=== PATIENT | female | born 1995 | race Caucasian/White ===

== ENCOUNTER 2022-08-22 11:05 | Emergency (ER) | payer SELFPAY ==
[2022-08-22 12:16] LABS: Absolute Lymphocytes (CBC) 1.7 K/uL (0.7-4.9); Hematocrit 41.9 % (36.0-45.0); Lymphocytes % 13.8 % (15.3-44.8); MCV 87.5 fL (80-100); MPV 9.3 fL (7.6-11.3); RBC Red Blood Cell Count 4.79 M/uL (3.86-4.86)
[2022-08-22 12:34] LABS: Albumin 3.8 g/dL (3.4-5.0); Bilirubin Total 0.3 mg/dL (0.2-1.0); Protein, Total 8.1 g/dL (6.4-8.2)
[2022-08-22 13:20] LABS: Urine Blood Negative (Negative); Urine Glucose Negative (Negative); Urine Protein Negative (Negative)
--- NOTE | 2022-08-22 13:38 | RAD REPORT ---
EXAM DESCRIPTION: CTAbdomen Pelvis W Contrast - 08/22/2022 1:27 pm CLINICAL HISTORY: Abdominal pain. asdf COMPARISON: Abdomen Pelvis W Contrast dated 12/25/2017 TECHNIQUE: Biphasic CT imaging of the abdomen and pelvis was performed with 100 ml non-ionic IV cont rast. All CT scans are performed using dose optimization technique as appropriate and may include automated exposure control or mA/KV adjustment according to patient size. FINDINGS: The lung bases are clear. The liver demonstrates diffuse fatty infiltration. Spleen, pancreas, adrenal glands and kidneys are w ithin normal limits. No bowel obstruction, free air, free fluid or abscess. The appendix is normal. No evidence of signi ficant lymphadenopathy. No suspicious bony findings. IUD is present in the uterus. IMPRESSION: No acute intra-abdominal or pelvic finding. Fatty liver.
--- NOTE | 2022-08-22 13:57 | EDPHYS ---
Physician Documentation [facility] Name: Kiki Gonzalez Age: 27 yrs Sex: Female : 1995 Arrival Date: 08/22/2022 Time: 11:09 Bed Treatment Private MD: ED Physician Tee Lazar HPI: 08/22 11:57 This 27 yrs old Female presents to ER via Unassigned with complaints of jl9 Abdominal Pain, Back Pain x 1 week. Patient also c/o left ear pain. . 11:57 The patient presents with abdominal pain that is diffuse. Onset: The symptoms/episode jl9 began/occurred 1 week(s) ago. The symptoms radiate to both flanks. Associated signs and symptoms: Pertinent positives:. The symptoms are described as crampy. Modifying factors: The symptoms are alleviated by nothing, the symptoms are aggravated by nothing. Severity of pain: in the emergency department the pain is a 3 / 10. Historical: - Allergies: 12:09 PENICILLINS; iw 12:09 Codeine; iw - PMHx: 12:09 Heart Murmur; Mitral Valve Regurgitation; Asthma; iw - PSHx: 12:09 None; iw ROS: 11:56 Constitutional: Negative for fever, chills, and weight loss, Eyes: Negative for injury, jl9 pain, redness, and discharge, ENT: Negative for injury, pain, and discharge, Neck: Negative for injury, pain, and swelling, Cardiovascular: Negative for chest pain, palpitations, and edema, Respiratory: Negative for shortness of breath, cough, wheezing, and pleuritic chest pain. 11:56 : Negative for injury, bleeding, discharge, and swelling, MS/Extremity: Negative for injury and deformity, Skin: Negative for injury, rash, and discoloration, Neuro: Negative for headache, weakness, numbness, tingling, and seizure, Psych: Negative for depression, anxiety, suicide ideation, homicidal ideation, and hallucinations, Allergy/Immunology: Negative for hives, rash, and allergies, Endocrine: Negative for neck swelling, polydipsia, polyuria, polyphagia, and marked weight changes. 11:56 Abdomen/GI: Positive for abdominal pain, abdominal cramps. 11:56 Back: Positive for flank pain, bilaterally. Exam: 11:56 Constitutional: This is a well developed, well nourished patient who is awake, alert, jl9 and in no acute distress. Head/Face: Normocephalic, atraumatic. Eyes: Pupils equal round and reactive to light, extra-ocular motions intact. Lids and lashes normal. Conjunctiva and sclera are non-icteric and not injected. Cornea within normal limits. Periorbital areas with no swelling, redness, or edema. ENT: Mucous membranes moist. Neck: Trachea midline, no thyromegaly or masses palpated, and no cervical lymphadenopathy. Supple, full range of motion without nuchal rigidity, or vertebral point tenderness. No Meningismus. Chest/axilla: Normal chest wall appearance and motion. Nontender with no deformity. No lesions are appreciated. Cardiovascular: Regular rate and rhythm with a normal S1 and S2. No gallops, murmurs, or rubs. Normal PMI, no JVD. No pulse deficits. Respiratory: Lungs have equal breath sounds bilaterally, clear to auscultation and percussion. No rales, rhonchi or wheezes noted. No increased work of breathing, no retractions or nasal flaring. 11:56 Skin: Warm, dry with normal turgor. Normal color with no rashes, no lesions, and no evidence of cellulitis. MS/ Extremity: Pulses equal, no cyanosis. Neurovascular intact. Full, normal range of motion. Neuro: Awake and alert, GCS 15, oriented to person, place, time, and situation. Cranial nerves II-XII grossly intact. Motor strength 5/5 in all extremities. Sensory grossly intact. Cerebellar exam normal. Normal gait. Psych: Awake, alert, with orientation to person, place and time. Behavior, mood, and affect are within normal limits. 11:56 Abdomen/GI: Inspection: abdomen appears normal, Bowel sounds: normal, Palpation: mild abdominal tenderness. 11:56 Back: pain, that is mild, of the left low back and right low back. MDM: 11:38 Patient medically screened. jl9 11:57 Data reviewed: vital signs, nurses notes. jl9 13:55 Counseling: I had a detailed discussion with the patient and/or guardian regarding: the jl9 historical points, exam findings, and any diagnostic results supporting the discharge/admit diagnosis, lab results, radiology results, the need for outpatient follow up, to return to the emergency department if symptoms worsen or persist or if there are any questions or concerns that arise at home. 08/22 11:35 Order name: CBC with Diff; Complete Time: 12:49 [facility] 08/22 11:35 Order name: CMP; Complete Time: 12:49 [facility] 08/22 11:26 Order name: Urine Dipstick-Ancillary (obtain specimen); Complete Time: 13:20 [facility] 08/22 11:35 Order name: Lipase; Complete Time: 12:49 [facility] 08/22 11:35 Order name: CT Abd/Pelvis - IV Contrast Only; Complete Time: 13:45 [facility] 08/22 13:21 Order name: Urine Dipstick-Ancillary; Complete Time: 13:29 [facility] 08/22 11:26 Order name: Urine Test (obtain specimen); Complete Time: 13:20 [facility] 08/22 11:35 Order name: IV Saline Lock; Complete Time: 12:08 [facility] 08/22 11:35 Order name: Labs collected and sent; Complete Time: 12:08 [facility] Administered Medications: No medications were administered Disposition: 16:33 Co-signature as Attending Physician, Tee Lazar MD. rn Disposition Summary: 08/22/22 13:56 Discharge Ordered Location: Home jl9 Condition: Stable jl9 Diagnosis - Abdominal pain, unspecified jl9 - Acute serous otitis media, left ear jl9 Followup: jl9 - With: Private Physician - When: 1 - 2 days - Reason: Recheck today's complaints, Continuance of care, Re-evaluation by your physician Discharge Instructions: - Discharge Summary Sheet jl9 - Otitis Media, Adult jl9 - Abdominal Pain, Adult, [id number] jl9 Forms: - Medication Reconciliation Form jl9 - Thank You Letter jl9 - Antibiotic Education jl9 - Prescription Opioid Use jl9 Prescriptions: - azithromycin 250 mg Oral tablet - take 2 tablet by ORAL route once daily for 1 day then 1 tablet (250 mg) by oral jl9 route once daily for 4 days; 6 tablet; Refills: 0, Product Selection Permitted Signatures: Dispatcher [employer] Federica Arellano RN RN iw Nieto, Roman, MD MD rn Linares, John jl9 Corrections: (The following items were deleted from the chart) 13:55 11:57 This 27 yrs old Female presents to ER via Unassigned with complaints of jl9 Abdominal Pain, Back Pain x 1 week. . jl9
--- NOTE | 2022-08-22 13:57 | ER ---
Nurse's Notes [facility] Name: Kiki Gonzalez Age: 27 yrs Sex: Female : 1995 Arrival Date: 08/22/2022 Time: 11:09 Bed Treatment Private MD: Diagnosis: Abdominal pain, unspecified;Acute serous otitis media, left ear Presentation: 08/22 12:06 Chief complaint: Patient states: nausea X 2 weeks, lower and upper abd pain , la flank iw pain , also thinks her IUD needs to be checked, pain started in her pelvic area initially. Coronavirus screen: At this time, the client does not indicate any symptoms associated with coronavirus-19. Ebola Screen: Patient negative for fever greater than or equal to 101.5 degrees Fahrenheit, and additional compatible Ebola Virus Disease symptoms Patient denies exposure to infectious person. Patient denies travel to an Ebola-affected area in the 21 days before illness onset. No symptoms or risks identified at this time. Risk Assessment: Do you want to hurt yourself or someone else? Patient reports no desire to harm self or others. Onset of symptoms was August 09, 2022. 12:06 Method Of Arrival: Ambulatory iw 12:06 Acuity: BAR 3 iw Historical: - Allergies: 12:09 PENICILLINS; iw 12:09 Codeine; iw - PMHx: 12:09 Heart Murmur; Mitral Valve Regurgitation; Asthma; iw - PSHx: 12:09 None; iw ED Course: 11:09 Patient arrived in ED. mr 11:25 Dimitrios Ramirez is PHCP. jl9 11:25 Tee Lazar MD is Attending Physician. jl9 12:00 Missed attempt(s): 22 gauge in left antecubital area. Bleeding controlled, band aid dh3 applied, catheter tip intact. 12:04 Initial lab(s) drawn, by ak, sent to lab. Inserted saline lock: 20 gauge in right dh3 antecubital area, using aseptic technique. Blood collected. 12:06 Federica Toussaint, RN is Primary Nurse. iw 12:09 Triage completed. iw 13:29 CT Abd/Pelvis - IV Contrast Only In Process Unspecified. EDMS Administered Medications: No medications were administered Outcome: 13:56 Discharge ordered by . jl9 14:54 Patient left the ED. 3 Signatures: Dispatcher [employer] Tania Davis Irene, Marcelina Jacob RN 3 Dimitrios Ramirez 9
== END 2022-08-22 14:54 | disposition home or self-care (01) ==
LOC: ER 11:05
DX: R10.9 Unspecified abdominal pain (principal); H65.02 Acute serous otitis media, left ear; Z88.0 Allergy status to penicillin; Z88.5 Allergy status to narcotic agent
CPT/HCPCS: 36415; 74177; 80053; 81003; 83690; 85025; 99283; Q9967

== ENCOUNTER 2022-10-23 19:47 | Emergency (ER) | payer SELFPAY ==
[2022-10-23] MEDS ORDERED: IPRATROPIUM BROM 0.5MG/2.5ML ONE (20:09)
[2022-10-23] MEDS ORDERED: HYDROCODONE/CHLORPHEN 5 ML/OSYR ONE ×2 (20:09→21:01)
[2022-10-23] MEDS ORDERED: ALBUTEROL 2.5 MG/3 ML NEB SOL ONE (20:09)
[2022-10-23] MEDS ORDERED: dexAMETHasone 10 MG/ML VIAL ONE (20:09)
[2022-10-23 20:55] LABS: SARS-COV-2 RT PCR POSITIVE (NEGATIVE)
--- NOTE | 2022-10-23 21:42 | RAD REPORT ---
EXAM DESCRIPTION: Mona Sykes (2 Views)10/23/2022 9:09 pm CLINICAL HISTORY: sob COMPARISON: 2010 FINDINGS: The lungs appear clear of acute infiltrate. The heart is normal size IMPRESSION: No acute abnormalities displayed
--- NOTE | 2022-10-23 22:00 | ER ---
Nurse's Notes [facility] Name: Kiki Gonzalez Age: 27 yrs Sex: Female : 1995 Arrival Date: 10/23/2022 Time: 19:50 Bed 11 Private MD: Diagnosis: Coronavirus infection, unspecified Presentation: 10/23 20:02 Chief complaint: Patient states: "I had swollen tonsils for like two weeks now. I have tw5 already been on antibiotics and steroids but it isn't' helping. I even went the clinic again yesterday and got another steroid and antibiotic shot. ". Coronavirus screen: Vaccine status: Patient reports being unvaccinated. Ebola Screen: Patient negative for fever greater than or equal to 101.5 degrees Fahrenheit, and additional compatible Ebola Virus Disease symptoms Patient denies exposure to infectious person. Patient denies travel to an Ebola-affected area in the 21 days before illness onset. Initial Sepsis Screen: Does the patient meet any 2 criteria? HR > 90 bpm. Does the patient have a suspected source of infection? Yes: Productive cough/pneumonia. Risk Assessment: Do you want to hurt yourself or someone else? Patient reports no desire to harm self or others. Onset of symptoms is unknown. 20:02 Method Of Arrival: Ambulatory tw5 20:02 Acuity: BAR 3 tw5 Triage Assessment: 20:04 General: Appears in no apparent distress. Behavior is calm, cooperative. Pain: Pain tw5 currently is 4 out of 10 on a pain scale. Respiratory: Reports shortness of breath at rest Onset: The symptoms/episode began/occurred gradually, the patient has mild shortness of breath. Historical: - Allergies: 20:04 Codeine; tw5 20:04 PENICILLINS; tw5 - PMHx: 20:04 Asthma; Heart Murmur; Mitral Valve Regurgitation; tw5 - PSHx: 20:04 Adenoid excision; tw5 - Immunization history:: Adult Immunizations not up to date. - Social history:: Smoking status: Patient/guardian denies using tobacco, Stopped _ months ago 1. Screenin:50 Abuse screen: Denies threats or abuse. Denies injuries from another. Nutritional tp1 screening: No deficits noted. Tuberculosis screening: No symptoms or risk factors identified. Fall Risk None identified. Assessment: 20:15 General: Appears in no apparent distress. uncomfortable, Behavior is calm, cooperative. tp1 Pain: Complains of pain in throat Pain does not radiate. Pain currently is 4 out of 10 on a pain scale. Neuro: Level of Consciousness is awake, alert, obeys commands, Oriented to person, place, time, situation. Cardiovascular: Patient's skin is warm and dry. Respiratory: Airway is patent Respiratory effort is even, unlabored. GI: Abdomen is obese. : No signs and/or symptoms were reported regarding the genitourinary system. EENT: Reports nasal congestion. Derm: Skin is pink, warm \\T\\ dry. Musculoskeletal: Circulation, motion, and sensation intact. 20:47 Reassessment: Patient appears in no apparent distress at this time. No changes from tp1 previously documented assessment. Patient and/or family updated on plan of care and expected duration. Pain level reassessed. Patient is alert, oriented x 3, equal unlabored respirations, skin warm/dry/pink. 22:12 Reassessment: Patient appears in no apparent distress at this time. No changes from tp1 previously documented assessment. Patient is alert, oriented x 3, equal unlabored respirations, skin warm/dry/pink. Vital Signs: 20:02 BP 128 / 78; Pulse 111; Resp 20; Temp 100; Pulse Ox 100% ; Weight 92.99 kg; Height 5 tw5 ft. 2 in. (157.48 cm); Pain 4/10; 22:12 BP 102 / 63; Pulse 96; Resp 16; Pulse Ox 99% on R/A; tp1 20:02 Body Mass Index 37.49 (92.99 kg, 157.48 cm) tw5 ED Course: 19:50 Patient arrived in ED. ja2 19:54 Matt Pierson NP is PHCP. pm1 19:54 Tee Lazar MD is Attending Physician. pm1 20:04 Triage completed. tw5 20:04 Arm band placed on. tw5 20:08 COVID swab sent to lab. Flu and/or RSV swab sent to lab. Strep swab sent to lab. mb4 20:09 Strep Sent. mb4 20:09 COVID-19/FLU A+B Sent. mb4 20:18 Patient has correct armband on for positive identification. Bed in low position. Call tp1 light in reach. 20:19 Strep Sent. tp1 20:19 COVID-19/FLU A+B Sent. tp1 20:52 No provider procedures requiring assistance completed. tp1 20:58 Irene Apple is Primary Nurse. tw5 21:10 Chest Pa And Lat (2 Views) XRAY In Process Unspecified. EDMS 22:13 Patient did not have IV access during this emergency room visit. tp1 Administered Medications: 20:13 Drug: Decadron (dexamethasone) 10 mg Route: IM; Site: left gluteus; tp1 21:55 Follow up: Response: No adverse reaction tp1 20:18 Not Given (Physician Discretion): Tussionex Pennkinetic ER tp1 (chlorpheniramine-hydrocodone) Suspension 5 ml PO once 20:18 Drug: Albuterol 2.5 mg Route: Inhalation; tp1 21:55 Follow up: Response: Marked relief of symptoms tp1 20:18 Drug: AtroVENT (ipratropium) Aerosol 0.5 mg Route: Inhalation; tp1 21:55 Follow up: Response: Marked relief of symptoms tp1 21:08 Drug: Tussionex Pennkinetic ER (chlorpheniramine-hydrocodone) Suspension 5 ml Route: PO;tp1 22:12 Follow up: Response: Marked relief of symptoms tp1 Medication: 20:50 VIS not applicable for this client. tp1 Outcome: 21:59 Discharge ordered by MD. pm1 22:13 Discharged to home ambulatory, with friend. tp1 22:13 Condition: good 22:13 Discharge instructions given to patient, Instructed on discharge instructions, follow up and referral plans. medication usage, Demonstrated understanding of instructions, follow-up care, medications, Prescriptions given X 4. 22:13 Patient left the ED. tp1 Signatures: Dispatcher [employer] EDMS Matt Pierson STOCK CLERK STOCK CLERK pm1 Aniya Cronin4 Ann Romano Tiffany tw5 Irene Aguilar, RN RN tp1 Corrections: (The following items were deleted from the chart) 20:50 20:15 Pain: Complains of pain in throat Pain does not radiate. tp1 tp1
--- NOTE | 2022-10-23 22:00 | EDPHYS ---
Physician Documentation [facility] Name: Kiki Gonzalez Age: 27 yrs Sex: Female : 1995 Arrival Date: 10/23/2022 Time: 19:50 Bed 11 Private MD: ED Physician Tee Lazar HPI: 10/23 20:04 This 27 yrs old Female presents to ER via Ambulatory with complaints of Swollen Glands, pm1 Breathing Difficulty. 20:04 The patient or guardian reports cough, shortness of breath. Onset: The symptoms/episode pm1 began/occurred 2 week(s) ago. Severity of symptoms: in the emergency department the symptoms are actually worse. Modifying factors: The symptoms are alleviated by nothing, the symptoms are aggravated by nothing. Associated signs and symptoms: Pertinent positives: fever, sore throat, Pertinent negatives: chest pain, nausea, vomiting. The patient has not experienced similar symptoms in the past. The patient has been recently seen at an urgent care, yesterday, for similar complaints, Patient was given clindamycin and steroid shot yesterday and z-young about 1 week ago for the same complaint. Patient is not currently taking any medications at home except diclofenac. Historical: - Allergies: 20:04 Codeine; tw5 20:04 PENICILLINS; tw5 - PMHx: 20:04 Asthma; Heart Murmur; Mitral Valve Regurgitation; tw5 - PSHx: 20:04 Adenoid excision; tw5 - Immunization history:: Adult Immunizations not up to date. - Social history:: Smoking status: Patient/guardian denies using tobacco, Stopped _ months ago 1. ROS: 20:04 Cardiovascular: Negative for chest pain, palpitations, and edema. pm1 20:04 Abdomen/GI: Negative for abdominal pain, nausea, vomiting, diarrhea, and constipation, Back: Negative for injury and pain, MS/Extremity: Negative for injury and deformity, Skin: Negative for injury, rash, and discoloration, Neuro: Negative for headache, weakness, numbness, tingling, and seizure. 20:04 Constitutional: Positive for fever, Negative for poor PO intake. 20:04 ENT: Positive for ear pain, sore throat, Negative for difficulty swallowing, difficulty handling secretions. 20:04 Neck: Positive for swollen nodes, of the left anterior aspect of neck. 20:04 Respiratory: Positive for cough, shortness of breath. 20:04 All other systems are negative. Exam: 20:04 Constitutional: This is a well developed, well nourished patient who is awake, alert, pm1 and in no acute distress. Head/Face: Normocephalic, atraumatic. 20:04 Back: No spinal tenderness. No costovertebral tenderness. Full range of motion. Skin: Warm, dry with normal turgor. Normal color with no rashes, no lesions, and no evidence of cellulitis. MS/ Extremity: Pulses equal, no cyanosis. Neurovascular intact. Full, normal range of motion. 20:04 Eyes: Exam is negative for acute changes, Periorbital structures: no acute changes, Extraocular movements: no acute changes, Conjunctiva: no acute changes. 20:04 ENT: Exam is negative for acute changes, External ear(s): no acute changes, Ear canal(s): no acute changes, TM's: no acute changes, Mouth: no acute changes, Lips: normal, moist, Oral mucosa: normal, pink and intact, moist. 20:04 Neck: Lymph nodes: lymphadenopathy is appreciated, left anterior cervical chain. 20:04 Cardiovascular: Exam negative for acute changes, Rate: tachycardic, Rhythm: regular, Pulses: no pulse deficits are appreciated, Heart sounds: normal. 20:04 Respiratory: Exam negative for acute changes, respiratory distress, shortness of breath, Breath sounds: are clear throughout. 20:04 Abdomen/GI: Exam negative for acute changes, Inspection: abdomen appears normal, Palpation: abdomen is soft and non-tender, in all quadrants. 20:04 Neuro: Exam negative for acute changes, Orientation: is normal, Mentation: is normal, Motor: is normal, moves all fours. Vital Signs: 20:02 BP 128 / 78; Pulse 111; Resp 20; Temp 100; Pulse Ox 100% ; Weight 92.99 kg; Height 5 tw5 ft. 2 in. (157.48 cm); Pain 4/10; 22:12 BP 102 / 63; Pulse 96; Resp 16; Pulse Ox 99% on R/A; tp1 20:02 Body Mass Index 37.49 (92.99 kg, 157.48 cm) tw5 MDM: 19:54 Patient medically screened. pm1 21:59 Data reviewed: vital signs. Data interpreted: Pulse oximetry: on room air is 100 %. pm1 Interpretation: normal. 21:59 Counseling: I had a detailed discussion with the patient and/or guardian regarding: the pm1 historical points, exam findings, and any diagnostic results supporting the discharge/admit diagnosis, lab results, radiology results, the need for outpatient follow up, to return to the emergency department if symptoms worsen or persist or if there are any questions or concerns that arise at home. 21:59 ED course: Patient requested paxlovid, will write prescription. pm1 10/23 20:02 Order name: COVID-19/FLU A+B; Complete Time: 20:57 pm1 10/23 20:02 Order name: Strep; Complete Time: 20:44 pm1 10/23 20:02 Order name: Chest Pa And Lat (2 Views) XRAY; Complete Time: 21:53 pm1 10/23 20:37 Order name: Throat Culture EDMS Administered Medications: 20:13 Drug: Decadron (dexamethasone) 10 mg Route: IM; Site: left gluteus; tp1 21:55 Follow up: Response: No adverse reaction tp1 20:18 Not Given (Physician Discretion): Tussionex Pennkinetic ER tp1 (chlorpheniramine-hydrocodone) Suspension 5 ml PO once 20:18 Drug: Albuterol 2.5 mg Route: Inhalation; tp1 21:55 Follow up: Response: Marked relief of symptoms tp1 20:18 Drug: AtroVENT (ipratropium) Aerosol 0.5 mg Route: Inhalation; tp1 21:55 Follow up: Response: Marked relief of symptoms tp1 21:08 Drug: Tussionex Pennkinetic ER (chlorpheniramine-hydrocodone) Suspension 5 ml Route: PO;tp1 22:12 Follow up: Response: Marked relief of symptoms tp1 Disposition: 22:45 Co-signature as Attending Physician, Tee Lazar MD. rn Disposition Summary: 10/23/22 21:59 Discharge Ordered Location: Home pm1 Problem: new pm1 Symptoms: have improved pm1 Condition: Stable pm1 Diagnosis - Coronavirus infection, unspecified pm1 Followup: pm1 - With: Emergency Department - When: As needed - Reason: Worsening of condition Followup: pm1 - With: Private Physician - When: 2 - 3 days - Reason: Recheck today's complaints, Continuance of care, Re-evaluation by your physician Discharge Instructions: - Discharge Summary Sheet pm1 - COVID-19 pm1 - COVID-19 Frequently Asked Questions pm1 - 10 Things You Can Do to Manage Your COVID-19 Symptoms at Home - [facility] pm1 - COVID-19: Quarantine vs. Isolation - [facility] pm1 Forms: - Medication Reconciliation Form pm1 - Thank You Letter pm1 - Antibiotic Education pm1 - Prescription Opioid Use pm1 Prescriptions: - Paxlovid (EUA) 150-100 mg Oral tablet - take 2 tablet by ORAL route 2 times per day for 5 days per package directions; pm1 1 packet; Refills: 0, Product Selection Permitted - Ventolin HFA 90 mcg/actuation Inhalation HFA aerosol inhaler - inhale 2 puff by INHALATION route every 4-6 hours As needed; 1 Inhaler; pm1 Refills: 0, Product Selection Permitted - Medrol (Young) 4 mg Oral Tablets, Dose Pack - take 1 tablet by ORAL route as directed - follow package instructions; 1 pm1 packet; Refills: 0, Product Selection Permitted - Bromfed DM 2-30-10 mg/5 mL Oral syrup - take 10 milliliter by ORAL route every 4 hours As needed; 200 milliliter; pm1 Refills: 0, Product Selection Permitted Signatures: Dispatcher [employer] Tee Jackson MD MD rn Marinas, Patrick, NP ROOFER APPLICATOR pm1 Irene Apple tw5 Irene Aguilar RN RN tp1
[2022-10-23 22:18] VITALS: TEMP 100
[2022-10-23 22:19] VITALS: BP 102/63; O2SAT 99
== END 2022-10-23 22:13 | disposition home or self-care (01) ==
LOC: ER 19:47
DX: U07.1 COVID-19 (principal); Z88.0 Allergy status to penicillin; Z88.5 Allergy status to narcotic agent
CPT/HCPCS: 0240U; 71046; 87070; 87081; 96372; 99284; J1100; J7613; J7644